=== PATIENT | male | born 1965 ===

== ENCOUNTER 2025-10-13 09:45 | Inpatient (IN) | payer OTHER ==
[~2025-10-13] VITALS: Ht 180.3 cm; Wt 97.1 kg
[2025-10-13 12:23] LABS: BASO % 0.5 % (0.1-1.2); EOS # 0.10 (0.04-0.54); EOS % 1.6 % (0.7-7.0); LYMPH # 1.98 (1.18-3.74); LYMPH % 30.9 % (19.3-53.1); MEAN PLATELET VOLUME 11.50 fl (9.4-12.4); MONO # 0.51 (0.24-0.82); MONO % 8.0 % (4.7-12.5); NEUT # 3.76 (1.56-6.13); NEUT % 58.7 % (34.0-71.1); RED CELL DISTRIBUTION WIDTH 12.9 % (11.6-14.4)
[2025-10-13 12:39] LABS: INR 1.19; URINE APPEARANCE Clear; URINE BILIRRUBIN Negative (NEGATIVE); URINE BLOOD Negative; URINE COLOR Yellow; URINE GLUCOSE Negative (NEGATIVE); URINE KETONE Negative (NEGATIVE); URINE LEUKOCYTE Negative; URINE NITRATE Negative; URINE PROTEIN Negative (NEGATIVE); URINE UROBILINOGEN 0.2 E.U./dl
[2025-10-13 12:40] VITALS: BP 156/92
[2025-10-13 12:40] LABS: URINE EPITHELIAL CELLS 1.5 uL (0.0-38.8); URINE RBC 2.4 uL (0.0-20.8); URINE WBC 1.8 uL (0.0-23.2)
[2025-10-13 12:42] LABS: URINE BACTERIA 1.2 uL (0.0-1933); URINE CAST 0.43 uL (0.0-1.40)
[2025-10-13 13:01] LABS: BUN CREA RATIO 15.0 (7.0-25.0); CREATININE SERUM 1.13 mg/dL (0.70-1.30); GFR 66.65; GLUCOSE FASTING 88.0 mg/dL (65-100); OSMOLALITY SERUM 288.0 MOSM/KG (275-295)
[2025-10-13 13:03] LABS: COVID-19 AG NEGATIVE (NEGATIVE)
[2025-10-20] MEDS ORDERED: CEFAZOLIN SODIUM 1,000 MG VIAL ONE ×2 (10:19→20:32)
[2025-10-20] MEDS ORDERED: ENOXAPARIN SODIUM 40 MG/0.4 ML SYRINGE SUBCUTANEO ONE ×2 (10:20→14:30)
[2025-10-20] MEDS ORDERED: SURGIFLO APPLICATOR 1 EACH APPL TOP ONE ×2 (14:30→14:45)
[2025-10-20] MEDS ORDERED: HEMOSTATIC MATRIX 1 KIT KIT TOP ONE ×2 (14:30→14:45)
[2025-10-20] MEDS ORDERED: BUPIVACAINE HCL 30 ML VIAL IJ ONE (14:30)
[2025-10-20] MEDS ORDERED: CEFAZOLIN SODIUM 1,000 MG VIAL IV ONE (14:30)
[2025-10-20] MEDS ORDERED: SUGAMMADEX SODIUM 200 MG/2 ML VIAL IV ONE (18:58)
[2025-10-20] MEDS ORDERED: MORPHINE SULFATE 4 MG/ML CARTRIDGE IV PRN (19:00)
[2025-10-20] MEDS ORDERED: ENALAPRILAT DIHYDRATE 1.25 MG/ML VIAL IV PRN (19:00)
[2025-10-20] MEDS ORDERED: ONDANSETRON HCL 2 MG/ML VIAL IV PRN (19:00)
[2025-10-20] MEDS ORDERED: OxyCODONE HCL 5 MG TABLET (ROXICODONE) PO PRN (19:00)
[2025-10-20] MEDS ORDERED: RINGERS SOLUTION,LACTATED 1,000 ML IV SCH (19:00)
[2025-10-20] MEDS ORDERED: hydrALAZINE HCL 20 MG VIAL ONE (19:26)
[2025-10-20] MEDS ORDERED: FAMOTIDINE/PF 20 MG/2 ML VIAL ONE (20:32)
[2025-10-20 20:43] LABS: BASO % 0.2 % (0.1-1.2); EOS # 0.00 (0.04-0.54); EOS % 0.0 % (0.7-7.0); LYMPH # 2.00 (1.18-3.74); LYMPH % 11.1 % (19.3-53.1); MEAN PLATELET VOLUME 11.70 fl (9.4-12.4); MONO # 0.88 (0.24-0.82); MONO % 4.9 % (4.7-12.5); NEUT # 14.94 (1.56-6.13); NEUT % 83.4 % (34.0-71.1); RED CELL DISTRIBUTION WIDTH 12.9 % (11.6-14.4)
[2025-10-20] MEDS ORDERED: CEFAZOLIN SODIUM 1,000 MG VIAL IV SCH (21:00)
[2025-10-20] MEDS ORDERED: FAMOTIDINE/PF 20 MG/2 ML VIAL IV SCH (21:00)
[2025-10-20 21:15] VITALS: BP 145/78; O2SAT 95
[2025-10-20 21:26] LABS: BUN CREA RATIO 11.0 (7.0-25.0); CREATININE SERUM 1.49 mg/dL (0.70-1.30); GFR 48.44; GLUCOSE FASTING 197.0 mg/dL (65-100); OSMOLALITY SERUM 292.0 MOSM/KG (275-295)
[2025-10-21] MEDS ORDERED: GABAPENTIN 300 MG CAPSULE PO SCH (01:00)
[2025-10-21 01:52] VITALS: BP 127/74; O2SAT 95
[2025-10-21 06:52] LABS: BASO % 0.1 % (0.1-1.2); EOS # 0.00 (0.04-0.54); EOS % 0.0 % (0.7-7.0); LYMPH # 0.96 (1.18-3.74); LYMPH % 10.4 % (19.3-53.1); MEAN PLATELET VOLUME 11.90 fl (9.4-12.4); MONO # 0.79 (0.24-0.82); MONO % 8.5 % (4.7-12.5); NEUT # 7.45 (1.56-6.13); NEUT % 80.7 % (34.0-71.1); RED CELL DISTRIBUTION WIDTH 12.8 % (11.6-14.4)
[2025-10-21 07:20] LABS: BUN CREA RATIO 12.0 (7.0-25.0); CREATININE SERUM 1.21 mg/dL (0.70-1.30); GFR 61.59; GLUCOSE FASTING 104.0 mg/dL (65-100); OSMOLALITY SERUM 286.0 MOSM/KG (275-295)
[2025-10-21] MEDS ORDERED: IRBESARTAN 150 MG TABLET PO SCH (09:00)
[2025-10-21] MEDS ORDERED: ENOXAPARIN SODIUM 40 MG/0.4 ML SYRINGE SUBCUTANEO SCH (09:00)
== END 2025-10-21 14:17 | disposition home or self-care (01) | DRG 708 ==
LOC: SURG 10-20 09:45 → O/R 10-20 10:00 → SURG 10-20 10:00
PROVIDERS: ADMIT Urology; ATTEND Urology
PROC: 0VB34ZZ Excision of Bilateral Seminal Vesicles, Percutaneous Endoscopic Approach (ICD-10-PCS; 2025-10-20)
PROC: 0TBB4ZX Excision of Bladder, Percutaneous Endoscopic Approach, Diagnostic (ICD-10-PCS; 2025-10-20)
PROC: 8E0W4CZ Robotic Assisted Procedure of Trunk Region, Percutaneous Endoscopic Approach (ICD-10-PCS; 2025-10-20)
PROC: 0VT04ZZ Resection of Prostate, Percutaneous Endoscopic Approach (ICD-10-PCS; principal; 2025-10-20 13:00)
DX: C61 Malignant neoplasm of prostate (principal); I10 Essential (primary) hypertension